=== PATIENT | male | born 1975 | race African-American/Black ===

== ENCOUNTER 2018-04-23 18:21 | Emergency (ER) | payer MEDICAID ==
[~2018-04-23] VITALS: Ht 188 cm; Wt 70.3 kg
[~2018-04-23 18:21] MED LIST: ALBU18HF2 INH; CYCL-1 PO; HYDR-4353 PO; IBUP-1574 PO; IBUP-1986 PO; MARIJUANA; META800T87 PO; NAPR-996 PO
[2018-04-23 18:51] VITALS: BP 157/99
== END 2018-04-23 20:23 | disposition home or self-care (01) ==
LOC: ER 18:22
DX: R21 Rash and other nonspecific skin eruption (principal); G89.29 Other chronic pain; M54.9 Dorsalgia, unspecified; J45.909 Unspecified asthma, uncomplicated; F12.90 Cannabis use, unspecified, uncomplicated; Z88.0 Allergy status to penicillin
CPT/HCPCS: 99281

== ENCOUNTER 2018-06-01 10:01 | Emergency (ER) | payer MEDICAID ==
[~2018-06-01] VITALS: Ht 188 cm; Wt 72.7 kg
[2018-06-01 10:22] VITALS: BP 122/75
== END 2018-06-01 12:03 | disposition home or self-care (01) ==
LOC: ER 10:02
DX: M54.5 Low back pain (principal); F12.90 Cannabis use, unspecified, uncomplicated; J45.909 Unspecified asthma, uncomplicated; G89.29 Other chronic pain; Z98.890 Other specified postprocedural states; Z88.0 Allergy status to penicillin
CPT/HCPCS: 99281

== ENCOUNTER 2021-01-01 09:50 | Emergency (ER) | payer MEDICAID | END 2021-01-01 12:30 | disposition left against medical advice (07) | LOC: ER 09:50 | DX: M79.606 Pain in leg, unspecified (principal); Z53.21 Procedure and treatment not carried out due to patient leaving prior to being seen by health care provider ==

== ENCOUNTER 2021-01-27 10:19 | Emergency (ER) | payer MEDICAID ==
[~2021-01-27] VITALS: Ht 188 cm; Wt 75.5 kg
[2021-01-27 10:23] VITALS: BP 155/106
[2021-01-27] MEDS ORDERED: ketorolac tromethamine 15mg/ml inj. IM ONE (11:50)
== END 2021-01-27 12:32 | disposition home or self-care (01) ==
LOC: ER 10:20
DX: G89.29 Other chronic pain (principal); M54.41 Lumbago with sciatica, right side; R53.1 Weakness; J45.909 Unspecified asthma, uncomplicated; F12.90 Cannabis use, unspecified, uncomplicated; Z72.89 Other problems related to lifestyle; Z98.890 Other specified postprocedural states; Z88.0 Allergy status to penicillin; Z79.899 Other long term (current) drug therapy
CPT/HCPCS: 96372; 99283; J1885

== ENCOUNTER 2021-09-01 12:46 | Emergency (ER) | payer MEDICAID ==
[~2021-09-01] VITALS: Ht 188 cm; Wt 77.9 kg
[2021-09-01] MEDS ORDERED: CLIN150C2 PO (14:03)
[2021-09-01 14:20] VITALS: BP 149/98
== END 2021-09-01 14:21 | disposition home or self-care (01) ==
LOC: ER 12:47
DX: K08.89 Other specified disorders of teeth and supporting structures (principal); K02.9 Dental caries, unspecified; J45.909 Unspecified asthma, uncomplicated; G89.29 Other chronic pain; F12.90 Cannabis use, unspecified, uncomplicated; Z72.89 Other problems related to lifestyle; Z98.890 Other specified postprocedural states; Z88.0 Allergy status to penicillin; Z79.899 Other long term (current) drug therapy; Z79.2 Long term (current) use of antibiotics
CPT/HCPCS: 99283